=== PATIENT | female | born 1960 | race Caucasian/White ===

== ENCOUNTER 2017-03-12 15:06 | Emergency (ER) | payer MEDICAID ==
[~2017-03-12] VITALS: Ht 160 cm; Wt 59.2 kg
[2017-03-12 16:14] LABS: BLOOD UREA NITROGEN 8 mg/dL (7-18)
[2017-03-12 16:21] LABS: IS PT STATUS REG ER OR PRE ER? YES
[2017-03-12] MEDS ORDERED: POTASSIUM CHLORIDE 20 MEQ TAB.ER.PRT PO ONE (16:30)
[2017-03-12] MEDS ORDERED: POTASSIUM CHLORIDE 20 MEQ TAB.ER.PRT ONE (16:38)
[2017-03-12 17:20] VITALS: BP 149/53
== END 2017-03-12 17:23 | disposition home or self-care (01) ==
LOC: ED 17:17
DX: I10 Essential (primary) hypertension (principal); E87.6 Hypokalemia
CPT/HCPCS: 36415; 71010; 80048; 82040; 83735; 84484; 85025; 93005

== ENCOUNTER 2017-06-09 18:29 | Observation (INO) | payer MEDICAID ==
[~2017-06-09] VITALS: Ht 160 cm; Wt 61.0 kg
[2017-06-09] MEDS ORDERED: ASPIRIN 81 MG TABLET CHEW PO ONE (19:00)
[2017-06-09] MEDS ORDERED: SODIUM CHLORIDE FLUSH 10ML SYR IVF ONE (19:00)
[2017-06-09 19:07] LABS: HEMATOCRIT 35.9 % (34.6-47.8); HEMOGLOBIN 12.2 g/dL (11.7-16.4); WHITE BLOOD COUNT 6.4 x10^3/uL (3.4-10)
[2017-06-09 19:19] LABS: BLOOD UREA NITROGEN 6 mg/dL (7-18)
[2017-06-09 19:26] LABS: IS PT STATUS REG ER OR PRE ER? YES
[2017-06-09] MEDS ORDERED: SUCR1TAB PO (19:40)
[2017-06-09] MEDS ORDERED: DULO30CA2 PO (19:40)
[2017-06-09] MEDS ORDERED: ATOR-2 PO (19:40)
[2017-06-09] MEDS ORDERED: ROPI2TAB4 PO ×2 (19:40→20:17)
[2017-06-09] MEDS ORDERED: ZIPR20CA3 PO (19:40)
[2017-06-09] MEDS ORDERED: HYDR200T PO (19:40)
[2017-06-09] MEDS ORDERED: GABA800T2 PO (19:40)
[2017-06-09] MEDS ORDERED: METH2.5T PO (19:40)
[2017-06-09] MEDS ORDERED: MECL25TA4 PO (19:40)
[2017-06-09] MEDS ORDERED: MAALOX/HYOSCYAMINE/LIDOCAINE 45 ML BTL ONE (19:41)
[2017-06-09] MEDS ORDERED: ASPIRIN 81 MG TABLET CHEW ONE ×2 (19:41→19:58)
[2017-06-09] MEDS ORDERED: MAALOX/HYOSCYAMINE/LIDOCAINE 45 ML BTL PO ONE (20:00)
[2017-06-09] MEDS ORDERED: ASPIRIN 325 MG TABLET PO ONE (20:00)
[2017-06-09] MEDS ORDERED: ACYC-114 PO (20:16)
[2017-06-09] MEDS ORDERED: DICL100G19 TD (20:16)
[2017-06-09] MEDS ORDERED: PRED5TAB PO (20:16)
[2017-06-09] MEDS ORDERED: FOLI-17 PO (20:16)
[2017-06-09] MEDS ORDERED: ONDA4TAB13 SL (20:17)
[2017-06-09] MEDS ORDERED: FENT1PAT77 TD (20:17)
[2017-06-09] MEDS ORDERED: LORA1TAB PO (20:17)
[2017-06-09] MEDS ORDERED: LORazepam 2 MG/ML, 1ML IVPush ONE (20:30)
[2017-06-09] MEDS ORDERED: LORazepam 2 MG/ML, 1ML ONE (20:35)
[2017-06-09] MEDS ORDERED: DIAZEPAM 5 MG/ML, 10ML VIAL IV ONE (21:00)
[2017-06-09] MEDS ORDERED: OMNIPAQUE 350 MG/ML, 100ML BOTTLE ONE (21:37)
[2017-06-09] MEDS ORDERED: ENOXAPARIN 60 MG/0.6 ML ONE (22:51)
[2017-06-09] MEDS ORDERED: ENOXAPARIN 60 MG/0.6 ML SQ SCH (23:00)
[2017-06-10] MEDS ORDERED: TEMAZEPAM 15 MG CAPSULE PO PRN
[2017-06-10] MEDS ORDERED: ENALAPRILAT 1.25 MG/ML, 2ML IVPush PRN
[2017-06-10] MEDS ORDERED: ONDANSETRON 2MG/ML, 2ML IVPush PRN
[2017-06-10] MEDS ORDERED: HYDROmorphone 2 MG/ML, 1ML IVPush PRN
[2017-06-10] MEDS ORDERED: POLYETHYLENE GLYCOL 17 GM PACKET PO PRN
[2017-06-10 00:15] VITALS: BP 142/80
[2017-06-10] MEDS ORDERED: FENTANYL 25 MCG PATCH TD SCH (00:30)
[2017-06-10] MEDS ORDERED: ATORVASTATIN 80 MG TABLET PO SCH (00:30)
[2017-06-10] MEDS: PREDNISONE MC SCH ×3 (00:30→16:30)
[2017-06-10 01:31] LABS: IS PT STATUS REG ER OR PRE ER? NO
[2017-06-10] MEDS: SODIUM CHLORIDE 0.9% 1,000 ML IV SCH ×3 (01:56→18:13)
[2017-06-10 03:10] VITALS: BP 132/76
[2017-06-10 07:26] LABS: HEMATOCRIT 35.1 % (34.6-47.8); WHITE BLOOD COUNT 4.3 x10^3/uL (3.4-10)
[2017-06-10] MEDS ORDERED: PANTOPRAZOLE 40 MG IV IVPush SCH (07:30)
[2017-06-10 07:35] LABS: BLOOD UREA NITROGEN 5 mg/dL (7-18)
[2017-06-10 07:38] LABS: IS PT STATUS REG ER OR PRE ER? NO
[2017-06-10] MEDS ORDERED: REGADENOSON 0.4 MG/5 ML SYRINGE ONE (08:07)
[2017-06-10] MEDS: SUCRALFATE 1 GM TABLET PO SCH ×2 (09:00→17:14)
[2017-06-10] MEDS: GABAPENTIN 400 MG CAPSULE PO SCH ×2 (09:00→17:11)
[2017-06-10] MEDS ORDERED: METHOTREXATE 2.5 MG TABLET PO SCH (09:00)
[2017-06-10] MEDS: DULOXETINE 30 MG CAPSULE.DR PO SCH ×2 (09:00→17:11)
[2017-06-10] MEDS: ROPINIROLE 1MG TABLET PO SCH ×2 (09:00→17:13)
[2017-06-10] MEDS: MECLIZINE CHEWABLE 25 MG TAB PO SCH ×2 (09:00→17:10)
[2017-06-10] MEDS ORDERED: DICLOFENAC SODIUM TD SCH (09:00)
[2017-06-10] MEDS: ACYCLOVIR 400 MG TABLET PO SCH ×2 (09:00→17:12)
[2017-06-10] MEDS ORDERED: ZIPRASIDONE 20MG CAPSULE PO SCH (09:00)
[2017-06-10] MEDS ORDERED: FOLIC ACID 1 MG TABLET PO SCH (09:00)
[2017-06-10] MEDS: HYDROXYCHLOROQUINE 200 MG TABLET PO SCH ×2 (09:00→17:11)
[2017-06-10] MEDS ORDERED: LORazepam 1MG TABLET PO SCH (09:00)
[2017-06-10] MEDS ORDERED: ENOXAPARIN 40 MG/0.4 ML SQ SCH (09:30)
[2017-06-10] MEDS ORDERED: LORazepam 1MG TABLET PO ONE ×2 (10:00→17:17)
[2017-06-10 10:44] VITALS: BP 118/76
[2017-06-10 14:20] VITALS: BP 127/80
[2017-06-10] MEDS ORDERED: BISACODYL 10 MG SUPP PR PRN (15:30)
[2017-06-10] MEDS ORDERED: MAGNESIUM SULFATE PMX 2GM/50ML 50 ML IV ONE (15:30)
[2017-06-10] MEDS ORDERED: POLYETHYLENE GLYCOL 17 GM PACKET PO SCH (15:30)
[2017-06-10] MEDS ORDERED: PANT40TA3 PO (15:42)
[2017-06-10] MEDS ORDERED: POLY17PO5 PO (15:42)
[2017-06-10] MEDS ORDERED: SUCR1ORA5 PO (15:42)
[2017-06-10] MEDS ORDERED: SENN1TAB7 PO (15:42)
[2017-06-11] MEDS ORDERED: SENNA/DOCUSATE TABLET PO SCH (09:00)
[2017-06-11] MEDS ORDERED: LORazepam 1MG TABLET PO SCH (09:00)
[2017-06-13] MEDS ORDERED: FENTANYL REMOVE PATCH NOTE XX SCH (00:30)
== END 2017-06-10 23:58 | disposition home or self-care (01) ==
LOC: ED 22:03 → EDIP 22:34 → INTOOBSV 22:34 → 5SO 23:46
PROVIDERS: ADMIT Hospitalist; ATTEND Hospitalist
DX: I24.9 Acute ischemic heart disease, unspecified (principal); I10 Essential (primary) hypertension; M06.9 Rheumatoid arthritis, unspecified; E78.5 Hyperlipidemia, unspecified; J96.00 Acute respiratory failure, unspecified whether with hypoxia or hypercapnia; K21.9 Gastro-esophageal reflux disease without esophagitis; M32.9 Systemic lupus erythematosus, unspecified; E87.1 Hypo-osmolality and hyponatremia; F11.20 Opioid dependence, uncomplicated; G89.29 Other chronic pain; K59.00 Constipation, unspecified; E83.42 Hypomagnesemia; F32.9 Major depressive disorder, single episode, unspecified; F41.9 Anxiety disorder, unspecified
CPT/HCPCS: 36415; 71010; 71275; 78452; 80048; 80061; 82040; 83735; 83880; 84484; 85025; 93005; 93017; 93306; 96361; 96365; 96366; 96372; 96375; 99285; A9502; C9898; G0378; J1650; J2060; J2785; J3360; J3475; J7030; Q9967

== ENCOUNTER 2017-06-19 07:31 | Day surgery (SDC) | payer MEDICAID ==
[2017-06-18 14:05] VITALS: BP 135/91
[2017-06-18 14:46] LABS: WHITE BLOOD COUNT 9.8 x10^3/uL (3.4-10)
[2017-06-18 14:53] LABS: BLOOD UREA NITROGEN 8 mg/dL (7-18)
[~2017-06-19] VITALS: Ht 160 cm; Wt 60.0 kg
[~2017-06-19 07:31] MED LIST: ACYC-114 PO; ATOR-2 PO; ATOR10TA9 PO; BLAC20TA PO; DICL100G19 TD; DULO30CA2 PO; FAMO40TA61 PO; FENT1PAT77 TD; FOLI-17 PO; GABA800T2 PO; HYDR200T PO; LISI5TAB7 PO; LORA1TAB PO; MECL25TA4 PO; METH2.5T PO; METR45CR TP; MULT-658 PO; ONDA4TAB13 SL; PANT40TA3 PO; POLY17PO5 PO; PRED5TAB PO; ROPI2TAB4 PO; SENN1TAB7 PO; SUCR1ORA5 PO; SUCR1TAB PO; TOPI25TA8 PO; ZIPR20CA3 PO; [UNRECOGNIZED DRUG - CODE] PO
[2017-06-19] MEDS ORDERED: SODIUM CHLORIDE 0.9% 1,000 ML IV ONE (07:45)
[2017-06-19] MEDS ORDERED: RISP1TAB3 PO (08:06)
[2017-06-19] MEDS ORDERED: ZIPR20CA3 PO (08:06)
[2017-06-19] MEDS ORDERED: MIDAZOLAM 1 MG/ML, 5ML ONE ×2 (09:18→10:07)
[2017-06-19] MEDS ORDERED: MIDAZOLAM 1 MG/ML, 5ML IVPush ONE (10:00)
[2017-06-19] MEDS ORDERED: LIDOCAINE 2%, 20ML ONE (10:08)
[2017-06-19] MEDS ORDERED: FENTANYL PF 100 MCG/2ML ONE (10:08)
[2017-06-19] MEDS ORDERED: VERAPAMIL 2.5 MG/ML, 2ML ONE (10:08)
[2017-06-19] MEDS ORDERED: DIPHENHYDRAMINE 50 MG/ML, 1ML ONE (10:08)
[2017-06-19] MEDS ORDERED: HEPARIN 1,000 UNITS/ML, 10ML ONE (10:08)
[2017-06-19] MEDS ORDERED: SODIUM CHLORIDE 0.9% 1,000 ML IV SCH (10:59)
[2017-06-19] MEDS ORDERED: LORazepam 1MG TABLET PO PRN (11:00)
[2017-06-19] MEDS ORDERED: TOPIRAMATE 25 MG TABLET PO PRN (11:00)
[2017-06-19] MEDS ORDERED: POLYETHYLENE GLYCOL 17 GM PACKET PO PRN (11:00)
[2017-06-19] MEDS ORDERED: ONDANSETRON ODT 4 MG PO PRN (11:00)
[2017-06-19] MEDS ORDERED: TEMPLATE NON-FORMULARY MED. (Gabapentin** 800 MG) PO SCH (11:00)
[2017-06-19] MEDS ORDERED: ACYCLOVIR 400 MG TABLET PO PRN (11:00)
[2017-06-19] MEDS ORDERED: FENTANYL 75 MCG PATCH TD SCH (11:00)
[2017-06-19] MEDS ORDERED: MORPHINE SULFATE 4 MG/ML, 1ML IVPush PRN (13:00)
[2017-06-19] MEDS ORDERED: MORPHINE SULFATE 4 MG/ML, 1ML ONE (13:07)
[2017-06-19] MEDS ORDERED: ATORVASTATIN 10 MG TABLET PO SCH (21:00)
[2017-06-19] MEDS ORDERED: RISPERIDONE 1 MG TABLET PO SCH (21:00)
[2017-06-19] MEDS ORDERED: ZIPRASIDONE 20MG CAPSULE PO SCH (21:00)
[2017-06-19] MEDS ORDERED: METRONIDAZOLE TP SCH (21:00)
[2017-06-19] MEDS ORDERED: LACTOSE REDUCED FOOD PO SCH (21:00)
[2017-06-20] MEDS ORDERED: METHOTREXATE 2.5 MG TABLET PO SCH (09:00)
[2017-06-20] MEDS ORDERED: BLACK COHOSH ROOT PO SCH (09:00)
[2017-06-20] MEDS ORDERED: FAMOTIDINE 40 MG TABLET PO SCH (09:00)
[2017-06-20] MEDS ORDERED: HYDROXYCHLOROQUINE 200 MG TABLET PO SCH (09:00)
[2017-06-20] MEDS ORDERED: FOLIC ACID 1 MG TABLET PO SCH (09:00)
[2017-06-20] MEDS ORDERED: DULOXETINE 30 MG CAPSULE.DR PO SCH (09:00)
[2017-06-20] MEDS ORDERED: MULTIVITAMIN 1 TABLET PO SCH (09:00)
[2017-06-20] MEDS ORDERED: LISINOPRIL 5 MG TABLET PO SCH (09:00)
[2017-06-20] MEDS ORDERED: SUCRALFATE 1 GM TABLET PO SCH (09:00)
== END 2017-06-19 15:02 ==
LOC: CACL 07:31
PROVIDERS: ATTEND Internal Medicine Cardiovascular Disease
DX: I20.0 Unstable angina (principal); E78.4 Other hyperlipidemia; I10 Essential (primary) hypertension; Z88.1 Allergy status to other antibiotic agents; Z88.5 Allergy status to narcotic agent; Z88.8 Allergy status to other drugs, medicaments and biological substances
CPT/HCPCS: 36415; 80048; 85025; 93458; 99156; C1894; J1200; J1644; J2250; J3010; J3490; Q9967

== ENCOUNTER 2018-04-05 13:29 | Emergency (ER) | payer MEDICAID ==
[~2018-04-05] VITALS: Ht 157.5 cm; Wt 62.0 kg
[~2018-04-05 13:29] MED LIST changes: -HYDR200T PO; +HYDR200T72 PO; +RISP1TAB3 PO
[2018-04-05 13:43] VITALS: BP 125/81
== END 2018-04-05 15:32 | disposition home or self-care (01) ==
LOC: ED 14:07
DX: S80.11XA Contusion of right lower leg, initial encounter (principal); I10 Essential (primary) hypertension; F32.9 Major depressive disorder, single episode, unspecified; W18.30XA Fall on same level, unspecified, initial encounter; Y93.89 Activity, other specified; Y99.8 Other external cause status; Y92.009 Unspecified place in unspecified non-institutional (private) residence as the place of occurrence of the external cause
CPT/HCPCS: 99284

== ENCOUNTER 2018-05-17 15:08 | Emergency (ER) | payer MEDICAID ==
[~2018-05-17] VITALS: Ht 160 cm; Wt 62.0 kg
[~2018-05-17 15:08] MED LIST changes: -SENN1TAB7 PO; +SENN1TAB8 PO
[2018-05-17 15:41] VITALS: BP 141/92
[2018-05-17 15:54] LABS: BASOPHILS # (AUTO) 0.04 x10^3/uL (0-0.1); BASOPHILS % (AUTO) 1 % (0-1); EOSINOPHILS # (AUTO) 0.06 x10^3/uL (0-0.4); EOSINOPHILS % (AUTO) 1 % (1-7); LYMPHOCYTES # (AUTO) 1.95 x10^3/uL (1-3.4); LYMPHOCYTES % (AUTO) 28 % (22-44); MD NO; MEAN CORPUSCULAR HEMOGLOBIN 31.9 pg (27.0-34.8); MEAN CORPUSCULAR HGB CONC 33.6 g/dL (32.4-35.8); MEAN CORPUSCULAR VOLUME 94.8 fL (80-100); MEAN PLATELET VOLUME 9.5 fL (7.4-10.4); MONOCYTES # (AUTO) 0.53 x10^3/uL (0.2-0.8); MONOCYTES % (AUTO) 8 % (2-9); NEUTROPHILS # (AUTO) 4.32 x10^3/uL (1.8-6.8); NEUTROPHILS % (AUTO) 63 % (42-75); PLATELET COUNT 204 x10^3/uL (130-400); RED BLOOD COUNT 4.13 x10^6/uL (3.82-5.3); RED CELL DISTRIBUTION WIDTH 13.4 % (9.6-15.2)
[2018-05-17] MEDS ORDERED: ONDANSETRON ODT 4 MG ONE (15:56)
[2018-05-17] MEDS ORDERED: MORPHINE SULFATE 4 MG/ML, 1ML ONE ×2 (15:56→16:35)
[2018-05-17] MEDS: MORPHINE SULFATE 4 MG/ML, 1ML IVPush PRN ×2 (16:00→16:42)
[2018-05-17] MEDS ORDERED: ONDANSETRON ODT 4 MG PO ONE (16:00)
[2018-05-17 16:01] LABS: ALBUMIN 3.5 g/dL (3.4-5.0); ANION GAP 10 mmol/L (5-15); CALCIUM 8.9 mg/dL (8.5-10.1); CHLORIDE 100 mmol/L (98-107)
[2018-05-17 16:05] LABS: ALANINE AMINOTRANSFERASE 26 U/L (12-78); ALKALINE PHOSPHATASE 51 U/L (45-117); BILIRUBIN,TOTAL 0.4 mg/dL (0.2-1.0); CREATININE 0.92 mg/dL (0.55-1.02); TOTAL PROTEIN 7.3 g/dL (6.4-8.2)
[2018-05-17] MEDS ORDERED: PINK LADY ENEMA 490 ML BOTTLE PR ONE (17:30)
[2018-05-17] MEDS ORDERED: MAGNESIUM CITRATE 300ML ORAL SOL PO ONE (17:30)
[2018-05-17] MEDS ORDERED: MAGNESIUM CITRATE 300ML ORAL SOL ONE (18:19)
== END 2018-05-17 19:11 | disposition home or self-care (01) ==
LOC: ED 18:50
DX: K59.00 Constipation, unspecified (principal); R10.84 Generalized abdominal pain; R11.0 Nausea; F32.9 Major depressive disorder, single episode, unspecified; I10 Essential (primary) hypertension; M06.9 Rheumatoid arthritis, unspecified
CPT/HCPCS: 36415; 74021; 74177; 80053; 85025; 96374; 96376; 99285; Q0162

== ENCOUNTER 2018-06-16 12:59 | Emergency (ER) | payer MEDICAID ==
[~2018-06-16] VITALS: Ht 157.5 cm; Wt 59.0 kg
[2018-06-16 13:01] VITALS: BP 100/70
[2018-06-16 14:51] LABS: BASOPHILS # (AUTO) 0.07 x10^3/uL (0-0.1); BASOPHILS % (AUTO) 1 % (0-1); EOSINOPHILS # (AUTO) 0.14 x10^3/uL (0-0.4); EOSINOPHILS % (AUTO) 2 % (1-7); LYMPHOCYTES # (AUTO) 2.61 x10^3/uL (1-3.4); LYMPHOCYTES % (AUTO) 34 % (22-44); MD NO; MEAN CORPUSCULAR HEMOGLOBIN 31.5 pg (27.0-34.8); MEAN CORPUSCULAR VOLUME 95.5 fL (80-100); MEAN PLATELET VOLUME 8.8 fL (7.4-10.4); MONOCYTES # (AUTO) 0.61 x10^3/uL (0.2-0.8); MONOCYTES % (AUTO) 8 % (2-9); NEUTROPHILS # (AUTO) 4.26 x10^3/uL (1.8-6.8); NEUTROPHILS % (AUTO) 55 % (42-75); PLATELET COUNT 215 x10^3/uL (130-400); RED BLOOD COUNT 4.19 x10^6/uL (3.82-5.3); RED CELL DISTRIBUTION WIDTH 13.7 % (9.6-15.2)
[2018-06-16 15:04] LABS: ALBUMIN 3.5 g/dL (3.4-5.0); ANION GAP 6 mmol/L (5-15); CALCIUM 8.6 mg/dL (8.5-10.1); CHLORIDE 103 mmol/L (98-107); CREATININE 0.92 mg/dL (0.55-1.02)
[2018-06-16 15:18] LABS: CULTURE INDICATED? YES; MICROSCOPIC INDICATED
== END 2018-06-16 16:20 | disposition home or self-care (01) ==
LOC: ED 14:35
DX: N30.01 Acute cystitis with hematuria (principal); I10 Essential (primary) hypertension; F32.9 Major depressive disorder, single episode, unspecified; M06.9 Rheumatoid arthritis, unspecified; Z88.5 Allergy status to narcotic agent; Z88.8 Allergy status to other drugs, medicaments and biological substances; Z88.1 Allergy status to other antibiotic agents
CPT/HCPCS: 36415; 80048; 81001; 82040; 85025; 87077; 87086; 87186; 99284

== ENCOUNTER 2019-09-27 21:27 | Emergency (ER) | payer MEDICAID ==
[~2019-09-27] VITALS: Ht 160 cm; Wt 61.2 kg
[~2019-09-27 21:27] MED LIST changes: -GABA800T2 PO; +GABA800T5 PO; +MECL-101 PO; -MECL25TA4 PO; -ROPI2TAB4 PO; +ROPI2TAB8 PO; +SENN-177 PO; -SENN1TAB8 PO
--- NOTE | 2019-09-27 21:59 | NUR ---
XRAY IN ROOM.
--- NOTE | 2019-09-27 22:00 | NUR ---
THIS IS A 59 YO F W/ C/O MID UPR BACK AND NECK PAIN SINCE TODAY. REPORTS HIGH BP SINCE MAY. INTERMITTENT EPIGASTRIC PAIN SINCE JULY. DENIES N/V, SOB. RESP EVEN AND UNLABORED. HYPERTENSIVE 174/86. "THE BLOOD PRESSURE KEEPS GETTING WORSE". PT REPORTS FAMILY HX OF MIX2. CALL LIGHT IN REACH. DENIES FURTHER NEEDS AT THIS TIME.
[2019-09-27] MEDS ORDERED: MAALOX/HYOSCYAMINE/LIDOCAINE 45 ML BTL ONE (22:10)
--- NOTE | 2019-09-27 22:12 | NUR ---
PT MEDICATED PER EMAR.
[2019-09-27 22:19] LABS: BASOPHILS # (AUTO) 0.03 x10^3/uL (0-0.1); BASOPHILS % (AUTO) 0 % (0-1); EOSINOPHILS # (AUTO) 0.13 x10^3/uL (0-0.4); EOSINOPHILS % (AUTO) 2 % (1-7); LYMPHOCYTES # (AUTO) 3.44 x10^3/uL (1-3.4); LYMPHOCYTES % (AUTO) 44 % (22-44); MD NO; MEAN CORPUSCULAR HEMOGLOBIN 32.7 pg (27.0-34.8); MEAN CORPUSCULAR HGB CONC 33.5 g/dL (32.4-35.8); MEAN CORPUSCULAR VOLUME 97.6 fL (80-100); MEAN PLATELET VOLUME 8.2 fL (7.4-10.4); MONOCYTES # (AUTO) 0.87 x10^3/uL (0.2-0.8); MONOCYTES % (AUTO) 11 % (2-9); NEUTROPHILS # (AUTO) 3.34 x10^3/uL (1.8-6.8); NEUTROPHILS % (AUTO) 43 % (42-75); PLATELET COUNT 242 x10^3/uL (130-400); RED BLOOD COUNT 3.93 x10^6/uL (3.82-5.3); RED CELL DISTRIBUTION WIDTH 13.7 % (9.6-15.2)
[2019-09-27 22:30] VITALS: BP 144/73
[2019-09-27 22:30] LABS: ALBUMIN 3.8 g/dL (3.4-5.0); CALCIUM 9.7 mg/dL (8.5-10.1)
[2019-09-27] MEDS ORDERED: MAALOX/HYOSCYAMINE/LIDOCAINE 45 ML BTL PO ONE (22:30)
[2019-09-27 22:35] LABS: ALANINE AMINOTRANSFERASE 24 U/L (12-78); ALKALINE PHOSPHATASE 59 U/L (45-117); BILIRUBIN,TOTAL 0.4 mg/dL (0.2-1.0); CREATININE 0.78 mg/dL (0.55-1.02); TOTAL PROTEIN 7.3 g/dL (6.4-8.2)
--- NOTE | 2019-09-27 22:53 | NUR ---
BP EQUAL ON BOTH SIDES. PT AMBULATED TO THE BR W/ A STEADY GAIT.
--- NOTE | 2019-09-27 23:04 | NUR ---
REPORT FROM KAILA REEVES. PT SITTING UP IN [facility] NOTED. PT REPORTS IMPROVEMENT IN PAIN WITH MEDICATIONS PROVIDED AND DENIES NEED FOR FURTHER PAIN MEDICATIONS. FAMILY AT BEDSIDE. PT/FAMILY UPDATED TO POC (RESULTS/RECHECK/DISPO) AND DEMONSTRATES UNDERSTANDING BP/SPO2/ECG MONITORING IN PLACE. NSR MONITOR, HR 60'S.
[2019-09-27 23:05] LABS: ANION GAP 6 mmol/L (5-15); CHLORIDE 89 mmol/L (98-107)
--- NOTE | 2019-09-27 23:07 | NUR ---
ROAD PACKER OPERATOR REPORTS "THERE WAS A DELAY WITH THE MACHINE" AND THE CMP AND TROP SHOULD BE RESULTED SOON.
--- NOTE | 2019-09-27 23:41 | NUR ---
DC EDUCATION PROVIDED, PT DEMONSTRATES UNDERSTANDING. PT AMBULATED STEADILY TO DC WITH RN AND SO. SO TO TRANSPORT PT HOME.
== END 2019-09-27 23:41 | disposition home or self-care (01) ==
LOC: ED 22:30
DX: E87.1 Hypo-osmolality and hyponatremia (principal); I10 Essential (primary) hypertension; M25.511 Pain in right shoulder; M25.512 Pain in left shoulder; M54.2 Cervicalgia; M79.10 Myalgia, unspecified site; M32.9 Systemic lupus erythematosus, unspecified; M06.9 Rheumatoid arthritis, unspecified
CPT/HCPCS: 36415; 71045; 80053; 84484; 85025; 93005; 99284

== ENCOUNTER 2019-09-29 18:47 | Inpatient (IN) | payer MEDICAID ==
[~2019-09-29] VITALS: Ht 157.5 cm; Wt 61.6 kg
[2019-09-29] MEDS ORDERED: ONDANSETRON ODT 4 MG ONE (19:09)
[2019-09-29] MEDS ORDERED: ONDANSETRON ODT 4 MG PO ONE (19:30)
[2019-09-29] MEDS ORDERED: SODIUM CHLORIDE 0.9% 1,000ML IVBOLUS ONE (20:00)
[2019-09-29] MEDS ORDERED: SODIUM CHLORIDE FLUSH 10ML SYR IVF ONE (20:00)
--- NOTE | 2019-09-29 20:00 | NUR ---
PT TO BR SBA THEN BACK TO BED. NO OTHER NEEDS AT THIS TIME.
[2019-09-29] MEDS ORDERED: MORPHINE SULFATE 4 MG/ML, 1ML ONE ×2 (20:06→22:11)
[2019-09-29] MEDS: MORPHINE SULFATE 4 MG/ML, 1ML IVPush PRN ×2 (20:17→22:13)
[2019-09-29 20:40] LABS: ALBUMIN 3.2 g/dL (3.4-5.0); ANION GAP 11 mmol/L (5-15); CALCIUM 8.3 mg/dL (8.5-10.1); CHLORIDE 85 mmol/L (98-107); CREATININE 0.92 mg/dL (0.55-1.02)
[2019-09-29 20:48] LABS: RAPID INFLUENZA A POSITIVE (Negative); RAPID INFLUENZA B Negative (Negative)
--- NOTE | 2019-09-29 21:00 | NUR ---
PT C/O A HEADACHE. MEDICATED PER OCT.
[2019-09-29 21:06] LABS: BASOPHILS # (AUTO) 0.02 x10^3/uL (0-0.1); BASOPHILS % (AUTO) 1 % (0-1); EOSINOPHILS # (AUTO) 0.02 x10^3/uL (0-0.4); EOSINOPHILS % (AUTO) 1 % (1-7); LYMPHOCYTES # (AUTO) 0.44 x10^3/uL (1-3.4); LYMPHOCYTES % (AUTO) 14 % (22-44); MD SCAN; MEAN CORPUSCULAR HEMOGLOBIN 32.4 pg (27.0-34.8); MEAN CORPUSCULAR HGB CONC 33.7 g/dL (32.4-35.8); MEAN CORPUSCULAR VOLUME 96.1 fL (80-100); MEAN PLATELET VOLUME 8.4 fL (7.4-10.4); MONOCYTES # (AUTO) 0.43 x10^3/uL (0.2-0.8); MONOCYTES % (AUTO) 14 % (2-9); NEUTROPHILS # (AUTO) 2.15 x10^3/uL (1.8-6.8); NEUTROPHILS % (AUTO) 70 % (42-75); PLATELET COUNT 154 x10^3/uL (130-400); RED BLOOD COUNT 3.68 x10^6/uL (3.82-5.3); RED CELL DISTRIBUTION WIDTH 13.7 % (9.6-15.2)
[2019-09-29] MEDS ORDERED: OSELTAMIVIR 75 MG CAPSULE ONE (21:19)
[2019-09-29] MEDS ORDERED: OSELTAMIVIR 75 MG CAPSULE PO ONE (21:30)
--- NOTE | 2019-09-29 22:00 | NUR ---
PT RESTING WITH EYES CLOSED. MONITOR IN PLACE. AT BEDSIDE.
--- NOTE | 2019-09-29 22:30 | NUR ---
PT C/O INCREASED PAIN. MEDICATED PER OCT.
--- NOTE | 2019-09-29 22:49 | NUR ---
RPT CALLED TO KAILA GIORDANO. PT RTG.
[2019-09-29 23:09] VITALS: BP 118/57
[2019-09-29] MEDS ORDERED: ONDANSETRON 2MG/ML, 2ML IVPush ONE (23:30)
[2019-09-30] MEDS ORDERED: POLYETHYLENE GLYCOL 17 GM PACKET PO PRN (00:30)
[2019-09-30] MEDS ORDERED: TEMPLATE NON-FORMULARY MED. (Gabapentin** 800 MG) PO SCH (00:30)
[2019-09-30] MEDS ORDERED: hydrALAzine 20 MG/ML, 1ML IVPush PRN (00:30)
[2019-09-30] MEDS ORDERED: ACYCLOVIR 400 MG TABLET PO PRN (00:30)
[2019-09-30] MEDS ORDERED: BISACODYL 10 MG SUPP PR PRN (00:30)
[2019-09-30] MEDS: RISPERIDONE 1 MG TABLET PO SCH ×2 (00:30→20:12)
[2019-09-30] MEDS ORDERED: PROMETHAZINE 25 MG/ML, 1ML IM PRN (00:30)
[2019-09-30] MEDS ORDERED: DOCUSATE 100 MG CAPSULE PO PRN (00:30)
[2019-09-30] MEDS: ZIPRASIDONE 20MG CAPSULE PO SCH ×2 (00:30→20:12)
[2019-09-30] MEDS ORDERED: ZIPRASIDONE 20MG CAPSULE PO SCH (00:30)
[2019-09-30] MEDS ORDERED: LORazepam 1MG TABLET PO PRN (00:30)
[2019-09-30 01:03] VITALS: BP 123/73
[2019-09-30 01:03] LABS: FREE T4 (FREE THYROXINE) 1.28 ng/dL (0.76-1.46)
[2019-09-30] MEDS: ENOXAPARIN 40 MG/0.4 ML SQ SCH (01:44)
[2019-09-30] MEDS: SODIUM CHLORIDE 0.9% 1,000 ML IV SCH ×2 (01:45→12:03)
[2019-09-30 03:24] LABS: BASOPHILS % (AUTO) 0 % (0-1); EOSINOPHILS % (AUTO) 0 % (1-7); LYMPHOCYTES # (AUTO) 0.36 x10^3/uL (1-3.4); LYMPHOCYTES % (AUTO) 6 % (22-44); MD NO; MEAN CORPUSCULAR HEMOGLOBIN 32.8 pg (27.0-34.8); MEAN CORPUSCULAR HGB CONC 33.9 g/dL (32.4-35.8); MEAN CORPUSCULAR VOLUME 96.8 fL (80-100); MEAN PLATELET VOLUME 8.2 fL (7.4-10.4); MONOCYTES # (AUTO) 0.38 x10^3/uL (0.2-0.8); MONOCYTES % (AUTO) 7 % (2-9); NEUTROPHILS # (AUTO) 4.87 x10^3/uL (1.8-6.8); NEUTROPHILS % (AUTO) 87 % (42-75); PLATELET COUNT 145 x10^3/uL (130-400); RED BLOOD COUNT 3.48 x10^6/uL (3.82-5.3); RED CELL DISTRIBUTION WIDTH 13.9 % (9.6-15.2)
[2019-09-30 03:34] LABS: ANION GAP 6 mmol/L (5-15); CALCIUM 8.2 mg/dL (8.5-10.1); CHLORIDE 89 mmol/L (98-107)
[2019-09-30 04:04] LABS: SODIUM,URINE RANDOM 64 mmol/L
[2019-09-30 04:16] LABS: MICROSCOPIC AUTO
[2019-09-30 04:18] LABS: OSMOLALITY,URINE 348 mOsm/kg (500-850)
[2019-09-30 04:43] LABS: CULTURE INDICATED? NO
[2019-09-30] MEDS: ONDANSETRON 2MG/ML, 2ML IVPush PRN (06:20)
[2019-09-30] MEDS: HYDROcodone/APAP 5/325 TABLET PO PRN ×2 (06:29→12:11)
[2019-09-30] MEDS: LORazepam 1MG TABLET PO PRN (06:29)
[2019-09-30 07:39] VITALS: BP 123/70
[2019-09-30] MEDS ORDERED: HYDROXYCHLOROQUINE 200 MG TABLET PO SCH ×2 (09:00)
[2019-09-30] MEDS ORDERED: DULOXETINE 30 MG CAPSULE.DR PO SCH (09:00)
[2019-09-30] MEDS ORDERED: FOLIC ACID 1 MG TABLET PO SCH (09:00)
[2019-09-30] MEDS ORDERED: METHOTREXATE 2.5 MG TABLET PO SCH (09:00)
[2019-09-30] MEDS ORDERED: SUCRALFATE 1 GM TABLET PO SCH (09:00)
[2019-09-30] MEDS ORDERED: FAMOTIDINE 40 MG TABLET PO SCH (09:00)
[2019-09-30] MEDS ORDERED: LACTOSE REDUCED FOOD PO SCH (09:00)
[2019-09-30] MEDS ORDERED: MULTIVITAMIN 1 TABLET PO SCH (09:00)
[2019-09-30] MEDS ORDERED: TEMPLATE NON-FORMULARY MED. 1 EA, TEMPLATE NON-FORMULARY MED. 1 EA PO SCH (09:00)
[2019-09-30] MEDS ORDERED: LISINOPRIL 5 MG TABLET PO SCH (09:00)
[2019-09-30] MEDS: GABAPENTIN 400 MG CAPSULE PO SCH ×4 (09:54→20:00)
[2019-09-30] MEDS: DULOXETINE 30 MG CAPSULE.DR PO SCH ×2 (09:54→09:56)
[2019-09-30] MEDS ORDERED: ACETAMINOPHEN 650 MG SUPP PR PRN (10:00)
[2019-09-30 10:23] LABS: ANION GAP 10 mmol/L (5-15); CALCIUM 7.9 mg/dL (8.5-10.1); CHLORIDE 91 mmol/L (98-107); CREATININE 0.85 mg/dL (0.55-1.02)
[2019-09-30] MEDS: MULTIVITAMIN 1 TABLET PO SCH (10:34)
[2019-09-30] MEDS: ACYCLOVIR 400 MG TABLET PO SCH ×3 (10:35→19:59)
[2019-09-30] MEDS: OSELTAMIVIR 75 MG CAPSULE PO SCH ×2 (10:35→19:59)
[2019-09-30] MEDS: FOLIC ACID 1 MG TABLET PO SCH (10:35)
[2019-09-30] MEDS: SUCRALFATE 1 GM TABLET PO SCH (10:35)
[2019-09-30] MEDS: LISINOPRIL 5 MG TABLET PO SCH (10:35)
[2019-09-30 13:45] VITALS: BP 121/57
[2019-09-30] MEDS: LIDODERM REMOVE PATCH NOTE XX SCH (14:16)
[2019-09-30] MEDS: LIDODERM 5% PATCH TD SCH (14:21)
[2019-09-30] MEDS: ONDANSETRON ODT 4 MG PO PRN ×2 (14:21→20:10)
[2019-09-30 15:14] LABS: ANION GAP 6 mmol/L (5-15); CALCIUM 8.1 mg/dL (8.5-10.1); CHLORIDE 98 mmol/L (98-107); CREATININE 0.81 mg/dL (0.55-1.02)
[2019-09-30] MEDS ORDERED: FAMOTIDINE 40 MG TABLET ONE (19:54)
[2019-09-30] MEDS: FAMOTIDINE 20 MG TABLET PO SCH (19:58)
[2019-09-30] MEDS: QUETIAPINE 25MG TABLET PO SCH (19:59)
[2019-09-30] MEDS: ATORVASTATIN 10 MG TABLET PO SCH (20:00)
[2019-09-30] MEDS ORDERED: ROPINIROLE 1MG TABLET PO ONE (20:00)
[2019-09-30 20:29] VITALS: BP 122/69
[2019-09-30] MEDS ORDERED: ATORVASTATIN 10 MG TABLET PO SCH (21:00)
[2019-10-01 00:02] VITALS: BP 106/69
[2019-10-01] MEDS: ACETAMINOPHEN 325 MG TABLET PO PRN ×2 (00:11→08:32)
[2019-10-01] MEDS: ENOXAPARIN 40 MG/0.4 ML SQ SCH (00:14)
[2019-10-01 05:23] LABS: ALBUMIN 2.8 g/dL (3.4-5.0); ANION GAP 5 mmol/L (5-15); CALCIUM 8.2 mg/dL (8.5-10.1); CHLORIDE 104 mmol/L (98-107)
[2019-10-01 05:27] LABS: ALANINE AMINOTRANSFERASE 41 U/L (12-78); ALKALINE PHOSPHATASE 42 U/L (45-117); BILIRUBIN,TOTAL 0.3 mg/dL (0.2-1.0); CHOL/HDL RATIO 1.8; CHOLESTEROL, TOTAL 113 mg/dL (140-239); CREATININE 0.81 mg/dL (0.55-1.02); HDL CHOL % 55 % (28-40); HDL CHOLESTEROL (DIRECT) 62 mg/dL (40-60); LDL CHOLESTEROL,CALCULATED 36 mg/dL (54-169); LDL/HDL RATIO 0.6 (0.5-3.0); TOTAL PROTEIN 6.1 g/dL (6.4-8.2); TRIGLYCERIDES 75 mg/dL (50-200); VLDL CHOLESTEROL 15 mg/dL (0-25)
[2019-10-01] MEDS: GABAPENTIN 400 MG CAPSULE PO SCH ×4 (05:51→20:50)
[2019-10-01 07:27] VITALS: BP 102/62
[2019-10-01] MEDS: SUCRALFATE 1 GM TABLET PO SCH (07:58)
[2019-10-01] MEDS: DULOXETINE 30 MG CAPSULE.DR PO SCH (07:58)
[2019-10-01] MEDS: LORazepam 1MG TABLET PO PRN (07:58)
[2019-10-01] MEDS: ACYCLOVIR 400 MG TABLET PO SCH ×3 (07:58→20:52)
[2019-10-01] MEDS: LISINOPRIL 5 MG TABLET PO SCH (07:59)
[2019-10-01] MEDS: MULTIVITAMIN 1 TABLET PO SCH (07:59)
[2019-10-01] MEDS: OSELTAMIVIR 75 MG CAPSULE PO SCH ×2 (07:59→20:51)
[2019-10-01] MEDS: FOLIC ACID 1 MG TABLET PO SCH (07:59)
[2019-10-01 13:01] VITALS: BP 112/67
[2019-10-01] MEDS: LIDODERM 5% PATCH TD SCH (16:08)
[2019-10-01 19:47] VITALS: BP 115/75
[2019-10-01] MEDS ORDERED: FAMOTIDINE 40 MG TABLET ONE (20:41)
[2019-10-01] MEDS: ROPINIROLE 1MG TABLET PO SCH (20:49)
[2019-10-01] MEDS: FAMOTIDINE 20 MG TABLET PO SCH (20:52)
[2019-10-01] MEDS: ATORVASTATIN 10 MG TABLET PO SCH (20:53)
[2019-10-01] MEDS: ZIPRASIDONE 20MG CAPSULE PO SCH (20:54)
[2019-10-01] MEDS: RISPERIDONE 1 MG TABLET PO SCH (20:54)
[2019-10-01] MEDS: QUETIAPINE 25MG TABLET PO SCH (20:54)
[2019-10-01] MEDS: ONDANSETRON 2MG/ML, 2ML IVPush PRN (21:51)
[2019-10-02 00:44] VITALS: BP 106/69
[2019-10-02] MEDS: LIDODERM REMOVE PATCH NOTE XX SCH (03:04)
[2019-10-02] MEDS: ENOXAPARIN 40 MG/0.4 ML SQ SCH (03:04)
[2019-10-02] MEDS: ACETAMINOPHEN 325 MG TABLET PO PRN (05:13)
[2019-10-02] MEDS: GABAPENTIN 400 MG CAPSULE PO SCH ×3 (05:13→15:45)
[2019-10-02 06:17] LABS: ANION GAP 6 mmol/L (5-15); CALCIUM 8.2 mg/dL (8.5-10.1); CHLORIDE 101 mmol/L (98-107); CREATININE 0.78 mg/dL (0.55-1.02)
[2019-10-02 08:41] VITALS: BP 121/83
[2019-10-02] MEDS: OSELTAMIVIR 75 MG CAPSULE PO SCH (08:44)
[2019-10-02] MEDS: ROPINIROLE 1MG TABLET PO SCH ×2 (08:44→15:45)
[2019-10-02] MEDS: SUCRALFATE 1 GM TABLET PO SCH (08:44)
[2019-10-02] MEDS: FOLIC ACID 1 MG TABLET PO SCH (08:44)
[2019-10-02] MEDS: LORazepam 1MG TABLET PO PRN (08:44)
[2019-10-02] MEDS: ACYCLOVIR 400 MG TABLET PO SCH ×2 (08:44→15:45)
[2019-10-02] MEDS: LISINOPRIL 5 MG TABLET PO SCH (08:44)
[2019-10-02] MEDS: MULTIVITAMIN 1 TABLET PO SCH (08:44)
[2019-10-02] MEDS: HYDROcodone/APAP 5/325 TABLET PO PRN (08:44)
[2019-10-02] MEDS: DULOXETINE 30 MG CAPSULE.DR PO SCH (08:45)
[2019-10-02] MEDS ORDERED: LIDODERM 5% PATCH TD ONE (10:00)
[2019-10-02] MEDS: ONDANSETRON 2MG/ML, 2ML IVPush PRN (10:12)
[2019-10-02 14:06] VITALS: BP 142/86
[2019-10-02] MEDS: ONDANSETRON ODT 4 MG PO PRN (14:32)
[2019-10-02] MEDS ORDERED: OSEL75CA14 PO (14:48)
[2019-10-02] MEDS ORDERED: AZIT500T10 PO (14:50)
[2019-10-02] MEDS: LIDODERM 5% PATCH TD SCH (15:00)
[2019-10-02] MEDS ORDERED: AZITHROMYCIN 500 MG TABLET PO SCH (15:00)
[2019-10-05] MEDS ORDERED: METHOTREXATE 2.5 MG TABLET PO SCH (09:00)
== END 2019-10-02 17:27 | disposition home health service (06) | DRG 426 ==
LOC: ED 21:21 → EDIP 21:47 → 4WST 22:54
PROVIDERS: ADMIT Internal Medicine; ATTEND Internal Medicine
DX: E87.1 Hypo-osmolality and hyponatremia (principal); M32.9 Systemic lupus erythematosus, unspecified; J10.1 Influenza due to other identified influenza virus with other respiratory manifestations; E78.5 Hyperlipidemia, unspecified; F32.9 Major depressive disorder, single episode, unspecified; F41.9 Anxiety disorder, unspecified; G89.29 Other chronic pain; I10 Essential (primary) hypertension; J98.11 Atelectasis; K21.9 Gastro-esophageal reflux disease without esophagitis; M06.9 Rheumatoid arthritis, unspecified; M79.7 Fibromyalgia; Z90.710 Acquired absence of both cervix and uterus; Z88.6 Allergy status to analgesic agent; Z88.8 Allergy status to other drugs, medicaments and biological substances
CPT/HCPCS: 36415; 71045; 80048; 80053; 80061; 81001; 82040; 83036; 83735; 83930; 83935; 84300; 84439; 84443; 85025; 87400; 96374; 99291; G0378; J1650; J2405; Q0162; J2270; J7030

== ENCOUNTER 2019-10-09 14:31 | Inpatient (IN) | payer MEDICAID ==
[~2019-10-09] VITALS: Ht 160 cm; Wt 60.5 kg
[~2019-10-09 14:31] MED LIST changes: +AZIT500T10 PO; +OSEL75CA14 PO
--- NOTE | 2019-10-09 15:01 | NUR ---
THIS IS A 59 YEAR OLD FEMALE WHO WAS HERE LAST WEEK FOR FLU, WORSENING COUGH, FEVER, EMESIS, AND BODY ACHES. THE PATIEHT IS ALERT, ORIENTED, WARM AND DRY. ABLE TO COMPLETE FULL SENTANCES.
[2019-10-09] MEDS ORDERED: SODIUM CHLORIDE 0.9% 1,000 ML IV ONE (15:11)
[2019-10-09] MEDS ORDERED: SODIUM CHLORIDE 0.9% 1,000ML IVBOLUS ONE (15:30)
[2019-10-09] MEDS ORDERED: SODIUM CHLORIDE FLUSH 10ML SYR IVF ONE (15:30)
[2019-10-09 15:35] LABS: BASOPHILS # (AUTO) 0.04 x10^3/uL (0-0.1); BASOPHILS % (AUTO) 1 % (0-1); EOSINOPHILS # (AUTO) 0.13 x10^3/uL (0-0.4); EOSINOPHILS % (AUTO) 2 % (1-7); LYMPHOCYTES # (AUTO) 2.66 x10^3/uL (1-3.4); LYMPHOCYTES % (AUTO) 42 % (22-44); MD NO; MEAN CORPUSCULAR HEMOGLOBIN 32.4 pg (27.0-34.8); MEAN CORPUSCULAR HGB CONC 33.5 g/dL (32.4-35.8); MEAN CORPUSCULAR VOLUME 96.9 fL (80-100); MEAN PLATELET VOLUME 8.2 fL (7.4-10.4); MONOCYTES # (AUTO) 0.88 x10^3/uL (0.2-0.8); MONOCYTES % (AUTO) 14 % (2-9); NEUTROPHILS # (AUTO) 2.68 x10^3/uL (1.8-6.8); NEUTROPHILS % (AUTO) 42 % (42-75); PLATELET COUNT 277 x10^3/uL (130-400); RED BLOOD COUNT 3.64 x10^6/uL (3.82-5.3); RED CELL DISTRIBUTION WIDTH 14.3 % (9.6-15.2)
--- NOTE | 2019-10-09 15:42 | NUR ---
PT TO X RAY VIA J[facility]
[2019-10-09 15:48] LABS: ALANINE AMINOTRANSFERASE 30 U/L (12-78); ALBUMIN 3.1 g/dL (3.4-5.0); ANION GAP 7 mmol/L (5-15); CALCIUM 8.1 mg/dL (8.5-10.1); CHLORIDE 97 mmol/L (98-107)
[2019-10-09 15:51] LABS: ALKALINE PHOSPHATASE 46 U/L (45-117); BILIRUBIN,TOTAL 0.3 mg/dL (0.2-1.0); TOTAL PROTEIN 6.3 g/dL (6.4-8.2)
[2019-10-09] MEDS ORDERED: ONDANSETRON 2MG/ML, 2ML ONE (16:30)
[2019-10-09] MEDS ORDERED: ACETAMINOPHEN 325 MG TABLET ONE (16:30)
[2019-10-09 16:34] LABS: CULTURE INDICATED? YES; MICROSCOPIC INDICATED
--- NOTE | 2019-10-09 16:35 | NUR ---
PT C/O OF IZAGUIRRE AND NAUSEA, DISCUSSED WITH MD, RECEIVED ORDERS MEDICATED. PT TOLERATED WELL
--- NOTE | 2019-10-09 16:40 | NUR ---
PT STATES SHE IS NOT HAVE ALLERIES TO TYLENOL ONLY CODIENE.
[2019-10-09] MEDS ORDERED: ONDANSETRON ODT 4 MG PO ONE (17:00)
[2019-10-09] MEDS ORDERED: ACETAMINOPHEN 325 MG TABLET PO ONE (17:00)
[2019-10-09] MEDS ORDERED: SODIUM CHLORIDE FLUSH 10ML SYR IVF PRN (17:30)
[2019-10-09] MEDS ORDERED: ONDANSETRON 2MG/ML, 2ML IVPush PRN (18:00)
[2019-10-09] MEDS ORDERED: POLYETHYLENE GLYCOL 17 GM PACKET PO PRN (18:00)
[2019-10-09] MEDS ORDERED: FENTANYL 25 MCG PATCH TD SCH (18:00)
[2019-10-09] MEDS ORDERED: TOPIRAMATE 25 MG TABLET PO PRN (18:00)
[2019-10-09] MEDS ORDERED: LORazepam 1MG TABLET PO PRN (18:00)
[2019-10-09] MEDS ORDERED: hydrALAzine 20 MG/ML, 1ML IVPush PRN (18:00)
[2019-10-09] MEDS ORDERED: TEMAZEPAM 15 MG CAPSULE PO PRN (18:00)
--- NOTE | 2019-10-09 18:10 | NUR ---
TASK RN: RECEIVED CALL FROM PHARMACY, QUESTION ON DOSING OF METHOTREXATE. CLARIFIED WITH PT AND PTS , METHOTREXATE 2.5 MG 8 PILLS ON THURSDAY.
--- NOTE | 2019-10-09 18:35 | NUR ---
REPORT TO JOSE BRIGHT, PLAN OF CARE DISCUSSED.
[2019-10-09] MEDS: ENOXAPARIN 40 MG/0.4 ML SQ SCH (19:47)
[2019-10-09] MEDS: SODIUM CHLORIDE 0.9% 1,000 ML IV SCH (19:47)
[2019-10-09] MEDS: GABAPENTIN 400 MG CAPSULE PO SCH ×2 (19:47→21:00)
[2019-10-09] MEDS ORDERED: LORA2TAB99 PO (20:12)
[2019-10-09] MEDS ORDERED: ROPI0.25 PO (20:14)
[2019-10-09 20:16] VITALS: BP 115/71
[2019-10-09] MEDS: CEFTRIAXONE PMX 2GM/50ML 50 ML IV SCH (20:17)
[2019-10-09] MEDS ORDERED: METRONIDAZOLE GEL 1%, 60GM TP SCH (21:00)
[2019-10-09] MEDS ORDERED: RISPERIDONE 1 MG TABLET PO SCH (21:00)
[2019-10-09] MEDS ORDERED: LIDO700A20 TD (21:49)
[2019-10-09] MEDS: ATORVASTATIN 10 MG TABLET PO SCH (21:54)
[2019-10-09] MEDS: GUAIFENESIN 200 MG TABLET PO SCH (21:54)
[2019-10-10 01:40] VITALS: BP 130/71
[2019-10-10] MEDS: SODIUM CHLORIDE 0.9% 1,000 ML IV SCH ×2 (05:13→14:19)
[2019-10-10] MEDS: GABAPENTIN 400 MG CAPSULE PO SCH ×4 (05:54→22:37)
[2019-10-10 06:10] LABS: CALCIUM 8.5 mg/dL (8.5-10.1); CHLORIDE 111 mmol/L (98-107)
[2019-10-10 06:16] LABS: ALANINE AMINOTRANSFERASE 31 U/L (12-78); ALBUMIN 2.9 g/dL (3.4-5.0); ALKALINE PHOSPHATASE 40 U/L (45-117); ANION GAP 4 mmol/L (5-15); BILIRUBIN,TOTAL 0.3 mg/dL (0.2-1.0); CREATININE 0.72 mg/dL (0.55-1.02); TOTAL PROTEIN 6.1 g/dL (6.4-8.2)
[2019-10-10 06:23] LABS: BASOPHILS # (AUTO) 0.03 x10^3/uL (0-0.1); BASOPHILS % (AUTO) 1 % (0-1); EOSINOPHILS # (AUTO) 0.09 x10^3/uL (0-0.4); EOSINOPHILS % (AUTO) 2 % (1-7); LYMPHOCYTES # (AUTO) 1.59 x10^3/uL (1-3.4); LYMPHOCYTES % (AUTO) 41 % (22-44); MD NO; MEAN CORPUSCULAR HEMOGLOBIN 32.8 pg (27.0-34.8); MEAN CORPUSCULAR HGB CONC 33.5 g/dL (32.4-35.8); MEAN CORPUSCULAR VOLUME 97.7 fL (80-100); MEAN PLATELET VOLUME 8.7 fL (7.4-10.4); MONOCYTES # (AUTO) 0.58 x10^3/uL (0.2-0.8); MONOCYTES % (AUTO) 15 % (2-9); NEUTROPHILS # (AUTO) 1.58 x10^3/uL (1.8-6.8); NEUTROPHILS % (AUTO) 41 % (42-75); PLATELET COUNT 263 x10^3/uL (130-400); RED BLOOD COUNT 3.65 x10^6/uL (3.82-5.3); RED CELL DISTRIBUTION WIDTH 13.9 % (9.6-15.2)
[2019-10-10 07:17] VITALS: BP 139/80
[2019-10-10] MEDS ORDERED: DULOXETINE 30 MG CAPSULE.DR PO SCH (09:00)
[2019-10-10] MEDS: GUAIFENESIN 200 MG TABLET PO SCH ×2 (10:56→20:15)
[2019-10-10] MEDS: MULTIVITAMIN 1 TABLET PO SCH (10:57)
[2019-10-10] MEDS: SUCRALFATE 1 GM TABLET PO SCH (10:57)
[2019-10-10] MEDS ORDERED: LIDODERM 5% PATCH TD SCH (12:00)
[2019-10-10] MEDS: FOLIC ACID 1 MG TABLET PO SCH (12:19)
[2019-10-10] MEDS: ACETAMINOPHEN 325 MG TABLET PO PRN ×2 (12:20→20:16)
[2019-10-10] MEDS: FAMOTIDINE 40 MG TABLET PO SCH (12:20)
[2019-10-10] MEDS: LORazepam 1MG TABLET PO SCH ×2 (12:21→22:37)
[2019-10-10 13:07] VITALS: BP 150/91
[2019-10-10] MEDS: CEFTRIAXONE PMX 2GM/50ML 50 ML IV SCH (18:32)
[2019-10-10] MEDS: ENOXAPARIN 40 MG/0.4 ML SQ SCH (18:32)
[2019-10-10 20:10] VITALS: BP 132/75
[2019-10-10] MEDS: ROPINIROLE 1MG TABLET PO SCH (20:15)
[2019-10-10] MEDS: ATORVASTATIN 10 MG TABLET PO SCH (20:15)
[2019-10-11 00:20] VITALS: BP 109/63
[2019-10-11] MEDS: SODIUM CHLORIDE 0.9% 1,000 ML IV SCH ×3 (00:52→21:48)
[2019-10-11] MEDS: LIDODERM 5% PATCH TD SCH (03:25)
[2019-10-11 06:01] LABS: ANION GAP 6 mmol/L (5-15); CALCIUM 8.7 mg/dL (8.5-10.1); CHLORIDE 111 mmol/L (98-107)
[2019-10-11 06:03] LABS: BASOPHILS # (AUTO) 0.04 x10^3/uL (0-0.1); BASOPHILS % (AUTO) 1 % (0-1); CREATININE 0.71 mg/dL (0.55-1.02); EOSINOPHILS # (AUTO) 0.11 x10^3/uL (0-0.4); EOSINOPHILS % (AUTO) 2 % (1-7); LYMPHOCYTES # (AUTO) 2.17 x10^3/uL (1-3.4); LYMPHOCYTES % (AUTO) 41 % (22-44); MD NO; MEAN CORPUSCULAR HEMOGLOBIN 32.5 pg (27.0-34.8); MEAN CORPUSCULAR HGB CONC 33.3 g/dL (32.4-35.8); MEAN CORPUSCULAR VOLUME 97.5 fL (80-100); MEAN PLATELET VOLUME 8.4 fL (7.4-10.4); MONOCYTES # (AUTO) 0.64 x10^3/uL (0.2-0.8); MONOCYTES % (AUTO) 12 % (2-9); NEUTROPHILS % (AUTO) 45 % (42-75); PLATELET COUNT 279 x10^3/uL (130-400); RED BLOOD COUNT 3.78 x10^6/uL (3.82-5.3); RED CELL DISTRIBUTION WIDTH 14.3 % (9.6-15.2)
[2019-10-11 06:54] VITALS: BP 131/80
[2019-10-11] MEDS ORDERED: LISINOPRIL 5 MG TABLET PO SCH (09:00)
[2019-10-11] MEDS: GUAIFENESIN 200 MG TABLET PO SCH ×2 (09:35→21:48)
[2019-10-11] MEDS: GABAPENTIN 400 MG CAPSULE PO SCH ×3 (09:36→21:48)
[2019-10-11] MEDS: FAMOTIDINE 40 MG TABLET PO SCH (09:36)
[2019-10-11] MEDS: LORazepam 1MG TABLET PO SCH ×2 (09:36→21:48)
[2019-10-11] MEDS: SUCRALFATE 1 GM TABLET PO SCH (09:36)
[2019-10-11] MEDS: DULOXETINE 30 MG CAPSULE.DR PO SCH (09:36)
[2019-10-11] MEDS: FOLIC ACID 1 MG TABLET PO SCH (09:36)
[2019-10-11] MEDS: MULTIVITAMIN 1 TABLET PO SCH (09:36)
[2019-10-11] MEDS ORDERED: LIDODERM 5% PATCH TD SCH (12:00)
[2019-10-11] MEDS: ACETAMINOPHEN 325 MG TABLET PO PRN ×2 (12:18→18:25)
[2019-10-11 15:05] VITALS: BP 137/81
[2019-10-11] MEDS: CEFTRIAXONE PMX 2GM/50ML 50 ML IV SCH (18:24)
[2019-10-11] MEDS: ENOXAPARIN 40 MG/0.4 ML SQ SCH (18:24)
[2019-10-11 19:57] VITALS: BP 118/73
[2019-10-11] MEDS: ROPINIROLE 1MG TABLET PO SCH (21:48)
[2019-10-11] MEDS: ATORVASTATIN 10 MG TABLET PO SCH (21:48)
[2019-10-12 02:59] VITALS: BP 134/87
[2019-10-12] MEDS: ACETAMINOPHEN 325 MG TABLET PO PRN ×3 (03:04→14:34)
[2019-10-12] MEDS: LIDODERM 5% PATCH TD SCH (03:05)
[2019-10-12 08:30] VITALS: BP 143/89
[2019-10-12] MEDS: SUCRALFATE 1 GM TABLET PO SCH (08:41)
[2019-10-12] MEDS: DULOXETINE 30 MG CAPSULE.DR PO SCH (08:41)
[2019-10-12] MEDS: MULTIVITAMIN 1 TABLET PO SCH (08:41)
[2019-10-12] MEDS: FOLIC ACID 1 MG TABLET PO SCH (08:42)
[2019-10-12] MEDS: LORazepam 1MG TABLET PO SCH (08:42)
[2019-10-12] MEDS: GABAPENTIN 400 MG CAPSULE PO SCH ×2 (08:42→16:00)
[2019-10-12] MEDS: FAMOTIDINE 40 MG TABLET PO SCH (08:42)
[2019-10-12] MEDS: GUAIFENESIN 200 MG TABLET PO SCH (08:42)
[2019-10-12] MEDS ORDERED: METHOTREXATE 2.5 MG TABLET PO SCH (09:00)
[2019-10-12] MEDS ORDERED: AMLO-150 PO (09:58)
[2019-10-12] MEDS ORDERED: GUAI400T81 PO (09:58)
[2019-10-12] MEDS ORDERED: AMLODIPINE 5 MG TABLET PO SCH (10:00)
== END 2019-10-12 18:00 | disposition home or self-care (01) | DRG 426 ==
LOC: ED 17:00 → EDIP 17:08 → 3N 19:03
PROVIDERS: ADMIT Internal Medicine; ATTEND Internal Medicine
DX: E87.1 Hypo-osmolality and hyponatremia (principal); I11.9 Hypertensive heart disease without heart failure; B34.9 Viral infection, unspecified; E78.5 Hyperlipidemia, unspecified; E86.0 Dehydration; F32.9 Major depressive disorder, single episode, unspecified; F41.9 Anxiety disorder, unspecified; G43.909 Migraine, unspecified, not intractable, without status migrainosus; G89.29 Other chronic pain; K21.9 Gastro-esophageal reflux disease without esophagitis; Z88.6 Allergy status to analgesic agent; Z88.8 Allergy status to other drugs, medicaments and biological substances; L93.0 Discoid lupus erythematosus; M06.9 Rheumatoid arthritis, unspecified; M79.7 Fibromyalgia; Z80.49 Family history of malignant neoplasm of other genital organs; Z82.49 Family history of ischemic heart disease and other diseases of the circulatory system; Z87.440 Personal history of urinary (tract) infections; Z90.49 Acquired absence of other specified parts of digestive tract; Z90.710 Acquired absence of both cervix and uterus
CPT/HCPCS: 36415; 71046; 80048; 80053; 81001; 83605; 83735; 84100; 85025; 87040; 87086; 96360; 99285; G0378; J0696; J1650; Q0162; J7030; J7512

== ENCOUNTER 2020-04-02 18:00 | Emergency (ER) | payer MEDICAID ==
[~2020-04-02] VITALS: Ht 157.5 cm; Wt 64.3 kg
[~2020-04-02 18:00] MED LIST changes: +AMLO-150 PO; +GUAI400T81 PO; +LIDO700A20 TD; +LORA2TAB99 PO; +ROPI0.25 PO
--- NOTE | 2020-04-02 18:59 | NUR ---
PT TO ROOM AT THIS TIME
--- NOTE | 2020-04-02 19:11 | NUR ---
PT CAME IN CO OF RIGHT HAND PAIN. PT SCREAMING IN PAIN. PT WOULDNT ALLOW IT TO BE TOUCHED. PT RESTING IN GURNEY. WARM BLANKETS PROVIDED. CONNECTED TO MONITORING EQUIPMENT.
[2020-04-02] MEDS ORDERED: LORazepam 2 MG/ML, 1ML ONE ×2 (19:47→20:28)
[2020-04-02] MEDS ORDERED: HYDROmorphone 2 MG/ML, 1ML ONE (19:47)
[2020-04-02] MEDS ORDERED: HALOPERIDOL 5 MG/ML ONE (19:52)
[2020-04-02] MEDS: HYDROmorphone 2 MG/ML, 1ML IVPush PRN ×2 (19:56→20:35)
[2020-04-02] MEDS ORDERED: LORazepam 2 MG/ML, 1ML IVPush ONE ×2 (20:00→20:30)
[2020-04-02] MEDS ORDERED: HALOPERIDOL 5 MG/ML IM ONE (20:00)
[2020-04-02] MEDS ORDERED: SODIUM CHLORIDE FLUSH 10ML SYR IVF ONE (20:00)
[2020-04-02] MEDS ORDERED: HYDROmorphone 1 MG/ML, 1ML INJ ONE (20:28)
--- NOTE | 2020-04-02 20:35 | NUR ---
PT STILL COMPLAINING OF PAIN. MD NOTIFIED. SEE MAR FOR INTERVENTIONS. PLACED ON 2 LITERS VIA NC
--- NOTE | 2020-04-02 20:52 | NUR ---
PT REPORTS PAIN IMPROVEMENT. RESTING IN GURNEY. EYES CLOSED. EQUAL RISE AND FALL OF CHEST WITH EACH BREATH. VSS.
[2020-04-02 21:24] VITALS: BP 125/80
--- NOTE | 2020-04-02 21:25 | NUR ---
PT VERBALIZED UNDERSTANDING OF DC INSTRUCTIONS.
== END 2020-04-02 21:42 | disposition home or self-care (01) ==
LOC: ED 21:35
DX: M06.831 Other specified rheumatoid arthritis, right wrist (principal); I10 Essential (primary) hypertension
CPT/HCPCS: 96372; 96374; 96375; 96376; 99284; J1170; J1630; J2060

== ENCOUNTER 2020-12-26 15:03 | Emergency (ER) | payer MEDICAID ==
[~2020-12-26] VITALS: Ht 157.5 cm; Wt 57.8 kg
[~2020-12-26 15:03] MED LIST changes: -ACYC-114 PO; +ACYC-40 PO; -FOLI-17 PO; +FOLI1TAB32 PO; -RISP1TAB3 PO; +RISP1TAB90 PO
--- NOTE | 2020-12-26 15:32 | NUR ---
LLQ/RLQ CONTINUOUS PRESSURE/CRAMPING AND DIARRHEA THAT IS "DEEP ORANGE" FOR 1 WEEK. NO FEVERS, N/V OR RESPIRATORY SXS NO HX OF INTESTINAL INFECTION HAS HAD APPENDECTOMY/CHOLECYSTECTOMY
--- NOTE | 2020-12-26 15:50 | NUR ---
Task RN: MD Espinosa at bedside.
[2020-12-26 16:22] LABS: BASOPHILS % (AUTO) 1 % (0-1); EOSINOPHILS % (AUTO) 1 % (1-7); LYMPHOCYTES % (AUTO) 36 % (22-44); MEAN CORPUSCULAR HEMOGLOBIN 31.9 pg (27.0-34.8); MEAN CORPUSCULAR HGB CONC 33.6 g/dL (32.4-35.8); MEAN PLATELET VOLUME 9.4 fL (7.4-10.4); MONOCYTES % (AUTO) 11 % (2-9); NEUTROPHILS % (AUTO) 52 % (42-75); PLATELET COUNT 247 x10^3/uL (130-400); RED BLOOD COUNT 4.04 x10^6/uL (3.82-5.3); RED CELL DISTRIBUTION WIDTH 15.5 % (9.6-15.2)
[2020-12-26 16:23] LABS: MD NO
[2020-12-26 16:32] LABS: ANION GAP 7 mmol/L (5-15); CHLORIDE 105 mmol/L (98-107)
[2020-12-26 16:33] LABS: ALANINE AMINOTRANSFERASE 26 U/L (12-78); ALBUMIN 3.7 g/dL (3.4-5.0)
[2020-12-26 16:35] LABS: ALKALINE PHOSPHATASE 60 U/L (45-117); BILIRUBIN,TOTAL 0.4 mg/dL (0.2-1.0); TOTAL PROTEIN 7.2 g/dL (6.4-8.2)
--- NOTE | 2020-12-26 16:41 | NUR ---
ALL TESTING REVIEWED-PLACED UP FOR RECHECK PATIENT STILL UNABLE TO PROVIDE STOOL SAMPLE NOW WITH INCREASED LOWER QUADRAT CRMPING-ERP MADE AWARE
--- NOTE | 2020-12-26 17:24 | NUR ---
Task RN: Pt unable to provide stool sample at this time. Pt complaining of lower abd pain. made aware.
[2020-12-26] MEDS ORDERED: MORPHINE SULFATE 4 MG/ML, 1ML ONE (17:26)
[2020-12-26] MEDS ORDERED: MORPHINE SULFATE 4 MG/ML, 1ML IVPush ONE (17:30)
--- NOTE | 2020-12-26 17:40 | NUR ---
medicated per emar for continued abd pain updated on estimated poc (to obtain abd ct)
[2020-12-26] MEDS ORDERED: ONDANSETRON 2MG/ML, 2ML IVPush ONE (18:30)
[2020-12-26] MEDS ORDERED: ONDANSETRON 2MG/ML, 2ML ONE (18:30)
[2020-12-26 18:38] VITALS: BP 138/86
--- NOTE | 2020-12-26 18:39 | NUR ---
medicated for nausea ua sent to [place] at 1835
[2020-12-26] MEDS ORDERED: OMNIPAQUE 350 MG/ML, 100ML BOTTLE ONE (18:50)
[2020-12-26 19:12] LABS: MICROSCOPIC AUTO
== END 2020-12-26 20:24 | disposition home or self-care (01) ==
LOC: ED 15:44
DX: R19.7 Diarrhea, unspecified (principal); R10.84 Generalized abdominal pain; I10 Essential (primary) hypertension
CPT/HCPCS: 36415; 74177; 80053; 81001; 85025; 87086; 96374; 96375; 99285; J2270; J2405; Q9967